=== PATIENT | female | born 1970 | race Hispanic/Latino ===

== ENCOUNTER → 2024-05-12 | Day surgery (SDC) | payer OTHER ==
[~2024-05-12] MED LIST: FENTANYL CITRATE/PF 100MCG/2 ML INJ ONE; LIDOCAINE HCL 2% LOCAL INJ 5 ML SDV VIAL INJ ONE; METFORMIN HCL500 MG PO; MIDAZOLAM HCL 2 MG/2 ML VIAL ONE; OMEPRAZOLE40 MG PO; PROPOFOL IV EMULSION 10 MG/ML 20 ML VIAL ONE
[2024-05-12] MEDS: LACTATED RINGER'S 1,000 ML ONE (06:17)
[2024-05-12 09:24] VITALS: TEMP 97.4
[2024-05-12 09:40] VITALS: BP 126/81; PULSE 74; RESP 16; O2SAT 100
== END | disposition home or self-care (01) ==
LOC: OR 05:40
PROVIDERS: ATTEND Internal Medicine Gastroenterology
DX: Z12.11 Encounter for screening for malignant neoplasm of colon (principal); K57.30 Diverticulosis of large intestine without perforation or abscess without bleeding; K64.8 Other hemorrhoids; Z86.0102 Personal history of hyperplastic colon polyps; K59.00 Constipation, unspecified; K21.9 Gastro-esophageal reflux disease without esophagitis; E11.9 Type 2 diabetes mellitus without complications; Z79.84 Long term (current) use of oral hypoglycemic drugs; E66.01 Morbid (severe) obesity due to excess calories; Z68.33 Body mass index [BMI] 33.0-33.9, adult; R74.8 Abnormal levels of other serum enzymes; I45.10 Unspecified right bundle-branch block; Z01.810 Encounter for preprocedural cardiovascular examination; Z79.899 Other long term (current) drug therapy
CPT/HCPCS: 36415; 45378; 82948; 93005; J2003; J2250; J2704; J3010; J7121